=== PATIENT | male | born 1945 | race Caucasian/White ===

== ENCOUNTER 2018-02-05 16:43 | Inpatient (IN) | payer MEDICARE, OTHER ==
[~2018-02-05] VITALS: Ht 177.8 cm; Wt 144.7 kg
--- NOTE | ~2018-02-05 | EEG ---
[address] [address] EEG STUDY REPORT Name: KALA SONI JR Room: [address] IN [facility]#: [id number] Admission: 02/05/18 Attend Phys: Celina Cedeño MD Discharge: Date of : 45 Report #: [id number] THIS REPORT FOR: //name// CC: Sanjeev Cristoballakia Celina Cedeño DATE OF SERVICE: 02/10/2018 This patient is being evaluated for altered mental status. EEG was done by placing the electrodes by standard 10-20 system of electrode placement. Both referential and sequential montages were used for recording. Background activity in this patient's EEG appeared to be about 6 Hz and 30 microvolt. Photic stimulation is unremarkable. No active epileptiform activity was noticed. IMPRESSION: This is an abnormal EEG because it is disorganized and poorly formed. That is a nonspecific abnormality, which can occur with encephalopathy, effect of psychotropic medication, etc., it can also occur with advanced dementia and multiple other etiology. Clinical correlation is recommended. By: [id number] Jay MD /nt
[2018-02-05 16:43] VITALS: BP 165/93
[~2018-02-05 16:43] MED LIST: BACTRIM DS TAB1 EACH PO; CARAFATE 1 GM TA1 G1; COREG CR20 MG; ESKALITH300 MG; PROTONIX 20 MG20 M1; SIMVASTATIN40 MG; ZOLOFT100 MG
[2018-02-05] MEDS ORDERED: COREG25 MG PO ×2 (16:58→17:00)
[2018-02-05] MEDS ORDERED: ATORVASTATIN CA40 MG PO ×2 (16:59→17:01)
[2018-02-05] MEDS ORDERED: LAMICTAL100 MG PO (17:01)
[2018-02-05] MEDS ORDERED: LASIX 40 MG TAB40 M2 PO (17:13)
[2018-02-05] MEDS ORDERED: LITHIUM CARBON300 M6 PO (17:13)
[2018-02-05] MEDS ORDERED: SERTRALINE HCL50 MG PO (17:13)
[2018-02-05] MEDS ORDERED: POTASSIUM20 PO (17:14)
[2018-02-05] MEDS ORDERED: METOLAZONE 2.52.5 MG PO (17:14)
[2018-02-05] MEDS ORDERED: TUMS PO (17:15)
[2018-02-05 17:16] LABS: ABSOLUTE BASOPHILS 0.1 thou/uL (0.0-0.2); ABSOLUTE EOSINOPHILS 0.1 thou/uL (0.0-0.7); ABSOLUTE MONOCYTES 1.2 thou/uL (0.0-1.2); ABSOLUTE NEUTROPHILS 11.6 thou/uL (1.6-8.1); BASOPHILS 0.8 %; EOSINOPHILS 0.7 %; HEMATOCRIT 51.4 % (42.0-52.0); HEMOGLOBIN 17.6 gm/dL (14.0-18.0); LYMPHOCYTES 13.5 %; MCH 31.5 pg (26.0-34.0); MCHC 34.2 g/dL (28.0-37.0); MCV 92.1 fL (80.0-100.0); MONOCYTES 8.2 %; MPV 9.7 fl. (7.2-11.1); NUCLEATED RBCS 0 /100WBC; PLATELET COUNT* 265 thou/uL (150-400); POLYS 76.8 %; RBC 5.58 mil/uL (4.50-6.00); RDW-CV 13.7 % (10.5-14.5); WBC 15.1 thou/uL (4.0-11.0)
[2018-02-05] MEDS ORDERED: CIPROFLOXIN HC2.5 M1 OPHTHALMIC (17:16)
[2018-02-05] MEDS ORDERED: XARELTO20 MG PO (17:16)
[2018-02-05 17:24] LABS: ANION GAP 6 mmol/L (7-16); BUN 50 mg/dL (7-18); CHLORIDE 105 mmol/L (98-107); CO2 33 mmol/L (21-32); CREATININE 2.2 mg/dL (0.6-1.3); GLUCOSE 106 mg/dL (70-99); POTASSIUM 3.2 mmol/L (3.5-5.1); SODIUM 144 mmol/L (136-145)
[2018-02-05 17:25] LABS: INR 1.3; PROTIME 13.5 Seconds (9.20-11.50)
[2018-02-05 17:44] LABS: ALBUMIN 3.8 g/dL (3.4-5.0); ALKALINE PHOSPHATASE 136 U/L (46-116); CK-MB MASS 0.8 ng/mL (<0.5-3.6); NT-PRO BRAIN NAT PEPTIDE 1124 pg/mL (<300); SGOT 21 U/L (15-37); SGPT 20 U/L (30-65); TOTAL BILIRUBIN 2.1 mg/dL (<0.1-1.0); TOTAL PROTEIN 8.3 g/dL (6.4-8.2); TROPONIN-I LEVEL <0.06 ng/mL (<0.06)
[2018-02-05 18:29] LABS: URINE BLOOD 3+ (Negative); URINE CLARITY CLEAR; URINE COLOR YELLOW; URINE GLUCOSE-RANDOM NEGATIVE (Negative); URINE KETONES TRACE (Negative); URINE LEUKOCYTES-REFLEX TRACE (Negative); URINE NITRITE-REFLEX NEGATIVE (Negative); URINE PROTEIN TRACE (Negative); URINE SPECIFIC GRAVITY 1.015 (1.005-1.030)
[2018-02-05 18:31] LABS: ICTOTEST (BILI CONFIRMATORY) Negative (Negative); URINE BILIRUBIN 1+ (Negative)
[2018-02-05 18:37] LABS: BACTERIA-REFLEX None Seen /HPF (None Seen); CASTS None Seen /LPF (None Seen); CRYSTALS None Seen /LPF (None Seen); SQUAMOUS 0-3 Few /LPF (0-3); URINE RBC >20 Many /HPF (0-2); URINE WBC-REFLEX 0-5 Rare /HPF (0-5)
--- NOTE | 2018-02-05 19:16 | NUR ---
EVA CALLED AND NOTIFIED THAT PATIENT WILL BE ADMITTED
[2018-02-05 19:40] VITALS: BP 124/75
[2018-02-05 19:45] VITALS: BP 150/97
[2018-02-05] MEDS ORDERED: VENLAFAXINE HCL75 MG PO (20:14)
[2018-02-06] VITALS: BP 137/82
[2018-02-06 04:00] VITALS: BP 120/78
--- NOTE | 2018-02-06 04:37 | NUR ---
ASSUMED PT CARE IN 1945, PT BROUGHT UP BY ED. PT IS NON VERBAL, HE WILL MAKE EYE CONTACT WHEN HE IS SPOKEN TO. DOES NOT FOLLOW COMMANDS. PT IS NPO. ON 2L NC SATTING MID TO HIGH 90'S. PT IS TRACING VPACED ON THE MONITOR. IVF INFUSING PER MAR. PT SCREENED SEPSIS + ON THE FLOOR, NOTIFIED NO NEW ORDERS. WEISS TO DD, REPOSITIONED EVERY 2 HOURS. ADMISSION ASSESSMENT COMPLETED DOCUMENTED. BED IN LOW POSIITON, CALL LIGHT IN REACH, HOURLY ROUNIDNG COMPLETED FOR PT SAFETY.
[2018-02-06 05:32] LABS: ALBUMIN 3.2 g/dL (3.4-5.0); CALCIUM 11.7 mg/dL (8.5-10.1); CREATININE 1.7 mg/dL (0.6-1.3); TOTAL BILIRUBIN 1.7 mg/dL (<0.1-1.0)
[2018-02-06 08:05] VITALS: BP 150/92
[2018-02-06 09:42] LABS: HEMATOCRIT 48.8 % (42.0-52.0); HEMOGLOBIN 16.4 gm/dL (14.0-18.0); MCH 31.4 pg (26.0-34.0); MCHC 33.6 g/dL (28.0-37.0); MCV 93.3 fL (80.0-100.0); RBC 5.24 mil/uL (4.50-6.00); WBC 13.2 thou/uL (4.0-11.0)
[2018-02-06 09:58] LABS: DIRECT BILIRUBIN 0.4 mg/dL (<0.1-0.3); TOTAL BILIRUBIN 1.8 mg/dL (<0.1-1.0)
[2018-02-06 11:56] VITALS: BP 158/86
[2018-02-06 14:50] LABS: CREATININE 1.6 mg/dL (0.6-1.3)
[2018-02-06 14:53] LABS: CALCIUM 12.2 mg/dL (8.5-10.1)
--- NOTE | 2018-02-06 15:08 | NUR ---
CM spoke with Pt's sister, Kelly via phone, Pt is sound asleep. Per sister, Pt is estranged from most of his family. Sister states that she spoke with him on the phone several months ago, but had not seen him since the beginning of the year. Pt admitted to the hospital from [facility], where he has been skilled since 01/31. Pt admitted to [facility] skilled from [facility]. Per sister, Pt normally resides at home and his youngest son has been staying with him. Sister states that at the beginning of the year, Pt was independent with ADLs and continued to drive. Sister states that Pt is , Pt has a long hx of bipolar, and Pt's oldest son last year. Since his divorce and loss of son, Pt has been more depressed than normal. Per sister, Pt does not have a DPOA, sister stated that she would be willing to be his DPOA, if Pt wants to appoint her. Pt's youngest son, Shankar Dillard [phone], has a drug hx, so sister is unsure of how "helpful" son is to Pt. Sister to come up and see Pt this evening. Plan is for Pt to return to [facility] at in. Spoke with [facility], they are able to accept Pt back over the weekend, Pt already has a qualifying stay, so does not need to be here 3 midnights. Following.
[2018-02-06 15:49] VITALS: BP 155/93
--- NOTE | 2018-02-06 16:32 | EKG ---
[place] [address] ELECTROCARDIOGRAM REPORT Name: KALA SONI JR Room: [address] ADM IN M.R.#: [id number] Admission: 02/05/18 Attend Phys: Celina Cedeño MD Discharge: Date of : 45 Report #: [id number] THIS REPORT FOR: //name// [facility] ED Test Date: 2018-02-05 Test Time: 16:49:59 Pat Name: KALA SOPINEDA Department: Room: [facility] Gender: M Artificial Stone Setter: Kyler REYES : 1945 Requested By: Marco Ochoa Order Number: [id number] MD: Sameer Pickett Measurements Intervals Balko Rate: 80 P: WA: QRS: 225 QRSD: 140 T: 71 QT: 536 QTc: 619 Interpretive Statements Afib/flutter and ventricular-paced rhythm No further analysis attempted due to paced rhythm Baseline wander in lead(s) V2 Compared to ECG 02/19/2011 04:30:06 ST (T wave) deviation no longer present Electronically Signed On 02-06-2018 16:32:17 WOOD FLOORING SPECIALIST by Sameer Pickett [email or web address] <ELECTRONICALLY SIGNED> By: Sameer Pickett MD, FACC 02/06/18 1632 1649 [id number] Sameer Pickett MD, FACC /EPI
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
[2018-02-06 20:00] VITALS: BP 169/104
[2018-02-07] VITALS: BP 120/79
[2018-02-07 04:00] VITALS: BP 128/75
[2018-02-07 04:54] LABS: CREATININE 1.5 mg/dL (0.6-1.3); MAGNESIUM 1.7 mg/dL (1.8-2.4); POTASSIUM 3.5 mmol/L (3.5-5.1)
[2018-02-07 05:32] LABS: CALCIUM 12.6 mg/dL (8.5-10.1)
--- NOTE | 2018-02-07 06:02 | NUR ---
pt rested quietly in bed this shift without agitation, pt awake and alert at times but non verbal, pt does not make eye contact, pt incontinent of stool x1, manuel cath remains intact to dependent drainage, iv fluids infusing, critical calcium called to dr melgoza this am at 0546, received new orders, pt resting quietly in bed at this time, fall and seizure precautions in place
[2018-02-07 06:28] LABS: CREATININE 1.5 mg/dL (0.6-1.3); POTASSIUM 3.5 mmol/L (3.5-5.1)
[2018-02-07 06:33] LABS: CALCIUM 12.7 mg/dL (8.5-10.1)
--- NOTE | 2018-02-07 07:56 | NUR ---
PT RESTING IN BED, NON VERBAL, OPENS EYES TFO VERBAL COMMANDS, NO OBVIOUS PAIN OR DISCOMFORT, BREATHING EVEN AND UNLABORED, O2 AT2L PER NC, TURNS Q 2 HOURS
[2018-02-07 08:00] VITALS: BP 152/98
[2018-02-07 11:45] VITALS: BP 148/89
[2018-02-07 13:40] LABS: CREATININE 1.5 mg/dL (0.6-1.3); PHOSPHORUS* 2.2 mg/dL (2.5-4.9)
[2018-02-07 13:53] LABS: CALCIUM 12.7 mg/dL (8.5-10.1)
[2018-02-07 16:00] VITALS: BP 148/88
--- NOTE | 2018-02-07 17:40 | NUR ---
PT RESTING IN BED, EYES CLOSED MOST OF DAY, SOMEWHAT LETHARGIC,OPENS EYES TO VERBAL COMMANDS BRIEFLY, MAKES EYE CONTACT, NO-VERBAL, KEPT NPO FOR PT SAFETY, TURNED Q 2 HOURS, V-PACED ON MONITOR , IVF, WEISS TO DD, NO OBVIOUS PAIN OR DISCOMFORT, BREATHING EVEN AND UNLABORED , O2 AT 2L PER NC
[2018-02-07 20:00] VITALS: BP 142/80
[2018-02-08] VITALS: BP 152/96
[2018-02-08 04:30] VITALS: BP 137/77
[2018-02-08 05:02] LABS: HEMATOCRIT 48.3 % (42.0-52.0); HEMOGLOBIN 16.4 gm/dL (14.0-18.0); MCH 31.6 pg (26.0-34.0); MCV 92.7 fL (80.0-100.0); MPV 10.2 fl. (7.2-11.1); RBC 5.2 mil/uL (4.50-6.00); RDW-CV 13.9 % (10.5-14.5); WBC 12.7 thou/uL (4.0-11.0)
--- NOTE | 2018-02-08 05:07 | NUR ---
pt has no change in condtion this shift, continues tracing vpaced on cardiac monitoring, repositioned every two hours, continues unable to take po meds due to mental status, resting in bed quietly at this time fall precautions in place
[2018-02-08 05:13] LABS: ALBUMIN 3.1 g/dL (3.4-5.0); CREATININE 1.5 mg/dL (0.6-1.3); MAGNESIUM 1.9 mg/dL (1.8-2.4); POTASSIUM 3.2 mmol/L (3.5-5.1); TOTAL BILIRUBIN 1.3 mg/dL (<0.1-1.0); TOTAL PROTEIN 6.6 g/dL (6.4-8.2)
[2018-02-08 05:17] LABS: CALCIUM 12.5 mg/dL (8.5-10.1)
[2018-02-08 08:00] VITALS: BP 134/78
[2018-02-08 12:40] VITALS: BP 144/99
--- NOTE | 2018-02-08 15:10 | NUR ---
RE: calcitonin order. Msg to Dr Lew calcitonin not a [facility]-approved item. Requested alternative order. Spoke to Zay GARCIA who also paged Dr. Lew. Stated he acknowledged calcitonin not available & stated pt receiveced bisphosphonate yesterday.
--- NOTE | 2018-02-08 15:34 | NUR ---
ASSUMED PT CARE AT 0730 REPORT RECEIVED FROM NURSE. PT IS AWAKE, OPEN EYES WHEN NAME IS CALLED, MOURNING WHEN ASKED HOW HE IS DOING. NO SPEECH. DOES NOT APPEAR TO BE IN PAIN AT THAT TIME. VSS. PT IS TOO TIRED TO MOVE EXTREMITIES. CALCIOUM LEVEL IS CRITICALLY HIGH 12.5, RESULT COMMUNICATED TO DR REY WHO ORDERED COLCICHINE. PHARMACY CALLED IN AND SAID THAT HOSPITAL DOES NOT CARRY THI MEDICINE. DR REY MADE AWARE. RESPONDED THERE IS NO OTHER SUBSTITE. PT IS TOO TIRED TO TAKE PO MEDICINE. TALKED TO FAMILIY MEMBERS OVER THE PHONE WHO CALLED, AND LET THEM KNOW ABOUT PT STATUS. PT IS TOO TIRED TO EAT. IV FLUID INFUSING AT 150CC PER HOUR. POTASSIUM REPLACED. IV MEDICINE ADMINISTERED ORDERED. Q2TURN PERFORMED.WEISS IN PLACE. WILL CONTINUE TO MONITOR.
[2018-02-08 16:53] VITALS: BP 165/99
[2018-02-08 17:50] LABS: pH 7.428 (7.340-7.450)
[2018-02-08 17:54] LABS: BE 7.3 mmol/L (-2 to +3); HCO3 33.6 mmol/L (22.0-26.0); PO2 89.9 mmHg (75.0-100.0)
[2018-02-08 19:50] VITALS: BP 125/83
[2018-02-09] VITALS: BP 139/83
--- NOTE | 2018-02-09 03:19 | NUR ---
RECIEVED REPORT AND ASSUMED CARE AT 1900. VITAL SIGNS STABLE. FORESTRY ENGINEER IN PLACE. PT UP WITH ROBBY LIFT ASSIST X 2. PT DOESN'T APPEAR TO BE IN PAIN AT THIS TIME, AND IS UNABLE TO VOICE NEEDS. ASSESSMENT COMPLETED. BED LOCKED, ALARM ON AND CALL LIGHT WITHIN REACH. HOURLY ROUNDING DONE AND ALL NEEDS MET. NURSING WILL CONTINUE TO MONITOR.
[2018-02-09 04:00] VITALS: BP 132/75
[2018-02-09 05:07] LABS: CALCIUM 11.1 mg/dL (8.5-10.1); CREATININE 1.4 mg/dL (0.6-1.3); MAGNESIUM 1.7 mg/dL (1.8-2.4); POTASSIUM 3.2 mmol/L (3.5-5.1)
--- NOTE | 2018-02-09 07:20 | NUR ---
CHANGE OF SHIFT BEDSIDE REPORT GIVEN PATIENT IN BED AND SLEEPING ASSUMED PATIENT CARE
[2018-02-09 08:00] VITALS: BP 140/76
--- NOTE | 2018-02-09 09:09 | NUR ---
No dc today. Plan continues to be for Pt to return to [facility] once medically stable for dc. Following.
[2018-02-09 11:10] LABS: KAPPA FREE LIGHT CHAINS 27.2 mg/L (3.3-19.4)
[2018-02-09 12:00] VITALS: BP 134/85
[2018-02-09 16:45] VITALS: BP 138/82
[2018-02-09 20:00] VITALS: BP 136/85
[2018-02-10] VITALS: BP 134/84
--- NOTE | 2018-02-10 02:09 | NUR ---
RECIEVED REPORT AND ASSUMED CARE AT 1900. BAG REPAIRER IN PLACE. VITAL SIGNS STABLE. PT UP WITH ROBBY LIFT ASSIST X 2. PT DOESN'T APPEAR TO HAVE PAIN AND IS UNABLE TO VOICE OWN NEEDS. ASSESSMENT COMPLETED. BED LOCKED, ALARM ON AND CALL LIGHT WITHIN REACH. HOURLY ROUNDING DONE AND ALL NEEDS MET. FALL PRECAUTIONS IN PLACE. NURSING WILL CONTINUE TO MONITOR.
[2018-02-10 04:00] VITALS: BP 139/85
[2018-02-10 04:55] LABS: HEMATOCRIT 46.2 % (42.0-52.0); HEMOGLOBIN 15.8 gm/dL (14.0-18.0); MCH 32.1 pg (26.0-34.0); MCHC 34.3 g/dL (28.0-37.0); MCV 93.7 fL (80.0-100.0); MPV 11.6 fl. (7.2-11.1); RBC 4.93 mil/uL (4.50-6.00); RDW-CV 13.7 % (10.5-14.5); WBC 17.1 thou/uL (4.0-11.0)
[2018-02-10 05:30] LABS: CALCIUM 10.3 mg/dL (8.5-10.1); CREATININE 1.2 mg/dL (0.6-1.3); MAGNESIUM 1.8 mg/dL (1.8-2.4); POTASSIUM 3.7 mmol/L (3.5-5.1)
--- NOTE | 2018-02-10 07:20 | NUR ---
CHANGE OF SHIFT BEDSIDE REPORT GIVEN PATIENT SEEN AT BEDSIDE IN BED ASLEEP ASSUMED PATIENT CARE
[2018-02-10 08:00] VITALS: BP 132/68
--- NOTE | 2018-02-10 10:10 | NUR ---
CM left message for Estrella with [facility] regarding skilled placement for Pt, awaiting call back
[2018-02-10 12:00] VITALS: BP 123/58
--- NOTE | 2018-02-10 13:11 | NUR ---
Nutrition: Pt admitted with elevated lithium level. Dehydration, confusion, UTI. Wt: 315#. Regular diet. Albumin 3.1. B12, statin, carvedilol. H/o bipolar, MDD, CKDIII, afib. Pt was assessed for high BMI. Pt awaiting placement. No nutrition interventions needed today. Low risk.
--- NOTE | 2018-02-10 14:49 | CON ---
[facility] [address] [place] [address] CONSULTATION Name: KALA SONI JR Room: [address] IN ..#: [id number] Admission: 02/05/18 Attend Phys: Celina Cedeño MD Discharge: Date of : 45 Report #: [id number] THIS REPORT FOR: //name// CC: Sanjeev Cedeño DATE OF SERVICE: 02/10/2018 HISTORY OF PRESENT ILLNESS: This is a 72-year-old male patient who was evaluated by me for any neurological etiology for altered mental status. I reviewed the patient's record. The patient does not provide any history. It looks like the patient was admitted on 02/05/2018 with altered mental status. It is not clear what his baseline is because even the [facility] did not know what the baseline is because he is a new resident. Records indicate that there were multiple abnormalities when he was admitted. It looks like he was hypernatremic, but the maximum sodium was 150. He has hypercalcemia and his ionized calcium is 7.7 the last time it was checked. His B12 and TSH have been unremarkable. When he came in, he was lithium toxic with lithium level of 1.9. It has come down to 1.2 the last time it was checked, which is upper limit of the normal. REVIEW OF SYSTEMS: Indicate that this patient does have a pacemaker as per records. It is not clear if the pacemaker is MRI compatible or not. He has history of bipolar disorder. I do not have the further history, but it looks like he is on multiple medications for that. I carried out the 14-point review of system, but is from the record because the patient will not provide any history. He has a history of hypercalcemia because of hyperparathyroidism. He has altered mental status, baseline is unclear. It is not possible to tell if he is having any other symptoms like visual problems, but apparently, he has a history of muscle weakness, dizziness, hypertension, depression. One of the record also indicates atrial fibrillation. He is on Xarelto for that. This was his relevant 14-point review of systems. PAST MEDICAL HISTORY: Unavailable, but from all indication, it looks like he has probably been diagnosed with bipolar disorder. FAMILY HISTORY: Also unavailable. SOCIAL HISTORY: From the record, it looks like he lives in a fci. PHYSICAL EXAMINATION: Very limited. He is very sleepy. He wakes up. When he wakes up, he does not follow any command. He did not say anything and because of that, it is not possible to check his memory or fund of knowledge. Cranial nerve examination 2-12 was attempted. He did not move his eyes in any direction from me. When I asked him to move his extremity, he does not move much at all, but I think when he wants to, he [place] [address] CONSULTATION Name: KALA SONI JR Room: [address]#: [id number] Admission: 02/05/18 Attend Phys: Celina Cedeño MD Discharge: Date of : 45 Report #: [id number] extremities. He will not do much with the lower extremities, but at one time, he did move slightly. He will not do position sense and I cannot tell about pinprick. His tone looks symmetrical. He did not do cerebellar sign and will not cooperate with the fundus examination. I could not elicit reflexes in the lower extremities. His pulses are difficult to feel. He may have slight edema. Cardiac examination does indicate some irregularity, but he has a history of atrial fibrillation. He does not appear to be markedly in respiratory distress. His blood pressure is 132/68, respirations 18, pulse is 80, temperature 99. LABORATORY DATA: His white count is 17.1. His urine analysis indicates 0-5 wbc. He did have a CT scan of the head done on admission, which demonstrate atrophic changes. IMPRESSION: This patient has finding of encephalopathy. He has multiple problems, which can cause encephalopathy. That include hypernatremia, hypercalcemia, lithium toxicity, etc. 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 Although commonly known is that correction of hyponatremia can cause central pontine myelinolysis, but it is increasingly recognized a correction of hypernatremia can also cause central pontine myelinolysis that is a possibility, but his sodium was not high enough for him to cause that. RECOMMENDATIONS: 1. We will do an EEG. 2. We can try to find out if his pacemaker is MRI compatible or not. That is going to be difficult to find out because no family member is there, but if we can find out, an MRI can be done that can help. 3. It will be desirable to find out what the patient's baseline condition is. I do not know what his baseline mental status is and it is difficult to find out. 4. We will discuss the patient with you, but it might be desirable just to repeat the CT on him and see if we can find some changes until we can find out if his pacemaker is compatible with MRI or not. Thank you very much for this referral. <ELECTRONICALLY SIGNED> By: Josue Jay MD 02/10/18 1449 1212 [id number] esau Nair
[2018-02-10 15:30] VITALS: BP 124/82
[2018-02-10 17:49] LABS: URINE BILIRUBIN NEGATIVE (Negative); URINE BLOOD NEGATIVE (Negative); URINE CLARITY CLEAR; URINE COLOR YELLOW; URINE GLUCOSE-RANDOM NEGATIVE (Negative); URINE KETONES NEGATIVE (Negative); URINE LEUKOCYTES-REFLEX NEGATIVE (Negative); URINE NITRITE-REFLEX NEGATIVE (Negative); URINE PROTEIN NEGATIVE (Negative); URINE UROBILINOGEN 0.2 E.U./dl (0.2-1.0)
[2018-02-10 20:00] VITALS: BP 125/67
[2018-02-11] VITALS: BP 137/77
--- NOTE | 2018-02-11 02:57 | NUR ---
PT ALERT, NONVERBLE, NOT FOLLOWING COMMANDS. TURN Q 2 HRS. INCONT OF STOOL. WEISS W/ YELLOW. PT IN ISOLATION PENDING RESULTS FOR STOOL SENT FOR CDIFF. TELEMETRY SHOWS VPACED. WILL CONTINUE TO MONITOR.
[2018-02-11 04:00] VITALS: BP 133/74
[2018-02-11 05:14] LABS: HEMOGLOBIN 15.4 gm/dL (14.0-18.0); MCH 32.6 pg (26.0-34.0); MCHC 35.1 g/dL (28.0-37.0); MPV 11.3 fl. (7.2-11.1); RBC 4.73 mil/uL (4.50-6.00); RDW-CV 13.8 % (10.5-14.5); WBC 8.9 thou/uL (4.0-11.0)
[2018-02-11 05:44] LABS: ALBUMIN 2.6 g/dL (3.4-5.0); CALCIUM 9.5 mg/dL (8.5-10.1); CREATININE 1.2 mg/dL (0.6-1.3); MAGNESIUM 2.2 mg/dL (1.8-2.4); PHOSPHORUS* 2.1 mg/dL (2.5-4.9); POTASSIUM 3.1 mmol/L (3.5-5.1); TOTAL BILIRUBIN 0.9 mg/dL (<0.1-1.0); TOTAL PROTEIN 6.5 g/dL (6.4-8.2)
--- NOTE | 2018-02-11 07:20 | NUR ---
CHANGE OF SHIFT, BEDSIDE REPORT GIVEN PATIENT SEEN AT BEDSIDE IN BED ASLEEP ASSUMED PATIENT CARE
[2018-02-11 11:30] VITALS: BP 116/76
--- NOTE | 2018-02-11 12:33 | NUR ---
CM spoke with Pt's sister, sister discussed applying for guardianship v. DPOA. CM explained that until Pt is more A&O, DPOA paperwork can not be completed. Sister to speak with a security investigator regarding guardianship. CM updated sister on having to locate alternate placement at dc, sister voiced understanding. Continue to await call back from Esther with [facility].
--- NOTE | 2018-02-11 15:31 | NUR ---
Pt more A&O this afternoon, nurse and CM were able to ask orientation questions, Pt was able to answer. Sister in room. Pt in agreement with having his sister be his DPOA. Form completed, copy on chart
--- NOTE | 2018-02-11 16:55 | NUR ---
discharge to rehab report given to [facility] left in place heart monitor removed personal belongings sent discharge information given, acknolwedged, and signed copies done asssited up via good condition
[2018-02-11 20:00] VITALS: BP 115/61
[2018-02-12] VITALS: BP 133/86
--- NOTE | 2018-02-12 02:45 | NUR ---
ASSUMED PT CARE @ 193. K+ RETURNED TO NORMAL LIMITS. PT MINIMALLY VERBAL. PT RESPONDED "YES" AFTER THIS NURSE WASHED THE CRUST FROM EYELASHES AND ASKED HIM IF HE FELT BETTER. MAKES EYE CONTACT AT TIMES. ATTEMPTS TO ASSIST WITH TURNS. 2 LIQUID STOOLS THIS SHIFT. BARRIER CREAM APPLIED FOR PREVENTATIVE (NO CURRENT BREAKDOWN). PT HAS VOIDED X 2 (INCONTINENT) SINCE WEISS D/C'D @ SHIFT CHANGE. A PACED ON MONITOR. CALL LIGHT IN REACH. HOURLY ROUNDING FOR SAFETY.
[2018-02-12 04:00] VITALS: BP 143/73
[2018-02-12 05:23] LABS: CALCIUM 9.2 mg/dL (8.5-10.1); MAGNESIUM 1.9 mg/dL (1.8-2.4); PHOSPHORUS* 2.1 mg/dL (2.5-4.9)
[2018-02-12 05:26] LABS: POTASSIUM 3.4 mmol/L (3.5-5.1)
[2018-02-12 09:00] VITALS: BP 120/74
[2018-02-12 11:12] LABS: LAMBDA FREE LIGHT CHAINS 16.1 mg/L (5.7-26.3)
[2018-02-12 11:53] VITALS: BP 143/85
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
--- NOTE | 2018-02-12 18:34 | NUR ---
ASSUMED PT CARE AT 0730, FULL ASSESMENT DONE CHARTED. PT DROWSY, WAKES TO STIMULATION, WILL ANSWER SOME YES/NO QUESTIONS, ONE WORD ANSWERS GIVEN AT TIMES. THIS EVENING PT STATES "WHATS GOING ON" WHEN RN WENT IN ROOM. PT HAVING TROUBLE SWALLOWING. ATTEMPTED FOR PT TO DRINK JUICE, NO ATTEMPT TO SWALLOW, JUICE RAN OUT OF PTS MOUTH. ATTEMPTED PUDDING, PT TOOK IT IN MOUTH BUT DID NOT SWALLOW. PT APPEARED TO ASPERATE ON MASHED POTATOES. ATTEMPTED ORAL VANC IN NECTAR THICK JUICE, PT APPEARED TO ASPERATE AT THIS TIME. PT MADE NPO, SPEECH CONSULT PLACED, DR INFORMED. PT DENIES PAIN, VSS, VPACED ON THE MONITOR THIS AM, CHANGED TO M/S STATUS THIS AFTERNOON. ATTEMPTED TO PLACE SECOND IV, NO NEW ONE ABLE TO BE PLACED. RAC IV FLUSHED WELL, PT BENDS ARM FREQUENTLY. EDUCATED TO KEEP ARM STRAIT. FALL PRECAUITONS IN PLACE. PT TURNED Q2 HR. WILL CONTINUE WITH PLAN OF CARE
[2018-02-12 20:00] VITALS: BP 121/60
[2018-02-13] VITALS: BP 125/71
--- NOTE | 2018-02-13 02:50 | NUR ---
PATIENT RESTED IN BED. PATIENT DOES NOT APPEAR TO BE IN DISTRESS. FALL PRECAUTIONS IN PLACE, CALL LIGHT WITH IN REACH, HOURLY ROUNDING OBSERVED, BED ALARM ON. PATIENT HAD MUTIPLE LIQUID BOWEL MOVEMENTS. PATIENT DID NOT APPEAR TO TOLERATE PO MED WELL, DOCTOR TIMOTHY NOTIFIED, NO NEW ORDERS.
[2018-02-13 04:48] LABS: HEMATOCRIT 42.7 % (42.0-52.0); HEMOGLOBIN 14.7 gm/dL (14.0-18.0); MCHC 34.5 g/dL (28.0-37.0); MCV 92.7 fL (80.0-100.0); MPV 10.2 fl. (7.2-11.1); RBC 4.61 mil/uL (4.50-6.00); RDW-CV 13.6 % (10.5-14.5); WBC 7.7 thou/uL (4.0-11.0)
[2018-02-13 05:01] LABS: ALBUMIN 2.4 g/dL (3.4-5.0); CALCIUM 8.3 mg/dL (8.5-10.1); CREATININE 0.7 mg/dL (0.6-1.3); MAGNESIUM 1.7 mg/dL (1.8-2.4); POTASSIUM 4.3 mmol/L (3.5-5.1); TOTAL BILIRUBIN 0.7 mg/dL (<0.1-1.0); TOTAL PROTEIN 5.7 g/dL (6.4-8.2)
--- NOTE | 2018-02-13 09:49 | NUR ---
SPEECH TO CONDUCT SWALLOW EVALUATION. IF PT DOES NOT PASS WILL START DOBHOFF TUBE AND START TUBE FEEDING.
--- NOTE | 2018-02-13 11:38 | NUR ---
JUNIOR FINANCIAL ANALYST SPOKE TO JACQUELIN, JUAN C WITH [facility] TO INFORM THAT PATIENT IS NOT READY TO D/C TODAY, AND THAT ACCORDING TO THE PHYSICIAN PATIENT MAY NOT BE READY TO D/C OVER THE WEEKEND. JACQUELIN INFORMS THAT THE FACILITY IS 'STILL WILLING TO ACCEPT THE PATIENT IF A BED IS AVAILABLE AT D/C', AND WOULD LIKE TO BE 'UPDATED ON THE PATIENT'S STATUS' SO THEY ARE 'PREPARED FOR HIS POSSIBLE ADMISSION'. JACQUELIN ALSO INFORMS THAT THE FACILITY IS UNABLE TO PROVIDE TRANSPORTATION, SO CM WILL NEED TO ARRANGE TRANPORT AT D/C. CM WILL REMAIN AVIALABLE TO ASSIST AND FOLLOW NEEDED. JACQUELIN (ADMISSIONS) [facility] PHONE: ([phone]) FAX: ([phone])
[2018-02-13 13:19] VITALS: BP 108/72
--- NOTE | 2018-02-13 17:04 | NUR ---
REPORT CALLED TO 3RD FLOOR.
--- NOTE | 2018-02-13 17:39 | NUR ---
PATIENT ARRIVED ON UNIT FROM TELE AT 1745. COMPLETED ASSESSMENT. IV FLUSHING. COMPLETED HOURLY ROUNDING. CALL LIGHT WITHIN REACH. WILL CONTINUE TO MONITOR.
[2018-02-13 18:10] LABS: URINE PROTEIN (MG/DL) 10.2 mg/dL (Not Estab.)
[2018-02-13 20:00] VITALS: BP 92/55
--- NOTE | 2018-02-14 05:51 | NUR ---
ASDSUMED [facility] CARE AT 1930. PATIENT ALERT AND ORIENTED TIMES FOUR. IV PATENT. TURNED Q2 HOURS. REMAINS INCONTINENT OF STOOL AT THIS TIME. NO COMPLAINTS OF PAIN OR DISCOMFORT NOTED. ISOLATION PRECAUTIONS MAINTAINED. CHEMIST ENZYMES AND HOURLY ROUNDING COMPLETED DOCUMENTED.
[2018-02-14 07:40] VITALS: BP 120/77
[2018-02-14 16:00] VITALS: BP 143/91
--- NOTE | 2018-02-14 16:25 | NUR ---
ASSESSMENT COMPLETE. PT ALERT AND ORIENTED X4. PT SLEPT MOST OF THE DAY, REFUSING MEALS. PT GIVEN PO VANC FOR CDIFF. PT DENIES NEED FOR PAIN MEDICATION AND DENIES N/V. PT IS ON 3L PER NC, SOA WITH EXERTION. PT INCONT DURING THE DAY. IV FLUIDS INFUSING. PT IS UP TO CHAIR WITH 1-2 ASSIST WITH GAIT AND WALKER. PT SEEN BY PT TODAY. PT Q2 TURN. SEE ASSESSMENT AND VITALS FOR OTHER DETAILS. CALL LIGHT WITHIN REACH, WILL CONTINUE PLAN OF CARE
[2018-02-14 19:45] VITALS: BP 140/83
[2018-02-14 23:55] VITALS: BP 160/45
--- NOTE | 2018-02-15 04:59 | NUR ---
PT SLEPT MOST OF SHIFT. ASSESSMENT DOCUMENTED. MEDS GIVEN PER E-MAR. IV PATENT, FLUIDS INFUSING. NO REPORTS OF PAIN OR NAUSEA. PT REFUSED ORAL MEDICATIONS AT BEGINING OF SHIFT. ISOLATION MAINTAINED. PT REPOSITIONED THROUGH NIGHT. WILL CONTINUE WITH PLAN OF CARE.
[2018-02-15 07:20] VITALS: BP 150/96
--- NOTE | 2018-02-15 16:24 | NUR ---
ASSESSMENT COMPLETE. PT ALERT AND ORIENTED X4. FLAT AND DEPRESSED MOOD THROUGHOUT THE DAY. PT ATE 50% OF BREAKFAST, TOOK AM MEDS CRUSHED IN APPLESAUCE. PT REFUSING TO EAT LUNCH AND DINNER. PT IS Q2 TURN. INCONT OF STOOL AND URINE DURING THE DAY. PT GAGGING/SPIT OUT PO VANC THIS AFTERNOON. PT HAS FLUIDS INFUSING. PT IS UP 2 ASSIST WITH WALKER AND GAIT BELT. SKIN W/D/I. MAG AND K+ REPLACED IV TODAY. SEE ASSESSMENT AND VITALS FOR OTHER DETAILS. CALL LIGHT WITHIN REACH, BED ALARM ON. WILL CONTINUE PLAN OF CARE
[2018-02-15 16:50] VITALS: BP 135/73
[2018-02-15 19:30] VITALS: BP 135/94
--- NOTE | 2018-02-16 05:13 | NUR ---
PT SLEPT MOST OF SHIFT. ASSESSMENT DOCUMENTED. MEDS GIVEN PER E-MAR. IV PATENT, FLUIDS INFUSING. PT REFUSED POTASSIUM THIS SHIFT STATING HE DIDN'T LIKE THE WAS IT TASTED. PT REPOSTIONED THROUGH NIGHT. PT INCONTINENT OF BOWEL AND BLADDER THIS SHIFT. WILL CONTINUE WITH PLAN OF CARE.
[2018-02-16 08:00] VITALS: BP 105/69
--- NOTE | 2018-02-16 16:00 | NUR ---
SHIFT NOTE - PT NO EATING MUCH THIS SHIFT - ONLY ABOUT 25% PER MEAL. PT REFUSED THERAPIES TODAY. PT REMAINS IN CDIFF PRECAUTIONS. WILL CONTINUE TO MONITOR.
[2018-02-16 21:30] VITALS: BP 128/78
--- NOTE | 2018-02-17 05:00 | NUR ---
PT SLEPT FAIRLY WELL OVERNIGHT,AWAKENS WITH CARES. INCONTINENT OVERNIGHT, DALE CARE GIVEN. ONE JELLY BM OVERNIGHT. RAC IVF, ABX GIVEN ORDERED. O2 2L. AM LABS DRAWN. REMAINS ON SP CONTACT ISOLATION FOR +CDIFF. TURNED AND REPOSITIONED Q2 HOURS AND PRN FOR SKIN CARE AND COMFORT PT WOULD ALLOW. BED ALARM ON FOR SAFETY.
[2018-02-17 07:08] VITALS: BP 99/66
[2018-02-17 15:54] VITALS: BP 103/58
--- NOTE | 2018-02-17 16:26 | NUR ---
ASSESSMENT COMPLETE. PT SLEPT THROUGH THE DAY REFUSING TO EAT. PT TURNED Q2. INCONT AT TIMES. IV FLUIDS INFUSING. K+ REPLACED. PT IS ON 2L PER NC WITH ADEQUATE SATS. DENIES SOA. PT DENIES PAIN AND N/V. SEE ASSESSMENT AND VITALS FOR OTHER DETAILS. CALL LIGHT WITHIN REACH, WILL CONTINUE PLAN OF CARE
[2018-02-18] VITALS: BP 102/65
--- NOTE | 2018-02-18 05:09 | NUR ---
PATIENT SLEPT WELL DURING THIS SHIFT. PT WITH TWO BOWEL MOVEMENTS DURING THE NIGHT. PT INCONTINENT OF BOWEL/BLADDER. PT TURNED Q2H PER PROTOCAL. PT WITH FLUIDS INFUSING PER DR ORDER. PT ON O2 @ 2 LITERS PER NASAL CANNULA. PT REMAINS IN ISLATION FOR CDIFF. FREQUENTLY USED ITEMS AND CALL LIGHT WITHIN REACH. SIDERAILS UPX4 AND BED ALARM ON. WILL CONTINUE TO MONITOR.
[2018-02-18 09:00] VITALS: BP 126/76
--- NOTE | 2018-02-18 11:03 | NUR ---
PER PROGRESS NOTE, PT.NOT BEING DISCHARGED TODAY,POSSIBLY TOMORROW. COMMUNICATED THIS TO ILIANA FREEMAN [facility] IN [place] [phone] AND FAXED UPDATED INFORMATION TO HER AT [phone].
[2018-02-18 16:36] VITALS: BP 121/78
--- NOTE | 2018-02-18 18:42 | NUR ---
0700 ASSUMED CARE OF PT, ASSESSMENT COMPLETE, B/P MEDICATION HELD AM AND PM DOSE D/T PRESSURE RUNNING LOW. PT SLEEPING MOST OF THE DAY, APPETITE POOR THIS SHIFT. IV SALINE LOCKED, FLUSHED AND PATENT,IS ABLE TO MAKE NEEDS KNOWN. NO C/O PAIN AT THIS TIME, HOURLY ROUNDING MAINTAINED, WILL CONT TO MONITOR.
[2018-02-18 20:49] VITALS: BP 124/70
--- NOTE | 2018-02-19 05:04 | NUR ---
PATIENT SLEPT WELL DURING THIS SHIFT. PT ON O2 @ 2 LITERS PER NASAL CANNULA. PT INCONTINENT OF BOWEL AND BLADDER. PT WITH NO BOWEL MOVEMENTS ON THIS SHIFT. PT DENIES PAIN/NAUSEA. PT TURNED Q2H PER PROTOCAL. PT REMAINS IN SPECIAL CONTACT ISOLATION FOR C-DIFF. FREQENTLY USED ITEMS AND CALL LIGHT WITHIN REACH. SIDERAILS UPX3 AND BED ALARM ON. WILL CONTINUE TO MONITOR.
[2018-02-19 05:33] LABS: CALCIUM 9.6 mg/dL (8.5-10.1); CREATININE 0.8 mg/dL (0.6-1.3); MAGNESIUM 1.8 mg/dL (1.8-2.4); POTASSIUM 3.3 mmol/L (3.5-5.1)
[2018-02-19 07:45] VITALS: BP 122/72
[2018-02-19] MEDS ORDERED: ATORVASTATIN CA40 MG PO (10:35)
[2018-02-19] MEDS ORDERED: MIDAMOR 5MG TABL5 M1 PO (10:46)
[2018-02-19] MEDS ORDERED: VANCOCIN 125 M125 M1 PO (11:03)
[2018-02-19 11:05] VITALS: BP 122/72
--- NOTE | 2018-02-19 11:37 | NUR ---
SPOKE TO THE PAITENT TO DISCUSS DISCHARGE PLANNING NEEDS AND HIS DISCHARGE TODAY TO [facility]. PATIENT IN AGREEMENT. CM SPOKE TO PATIENT'S SISTER RAMY (DPOA) TO INFORM OF THE PATIENT'S D/C. PATIENTT'S SON INFORMS THAT HE WILL ATTEMPT TO BRING HIS FATHER SOME EXTRA CLOTHING BY 1400 PRIOR TO THE PATIENT'S D/C. CASKET INSPECTOR SPOKE TO JACQUELIN WITH ADMISSIONS AT [facility] TO INFORM OF THE PATIENT'S D/C AND SHE INFORMS THAT SHE WILL ALSO NEED THE PATIENT'S DA124 AND DPOA FORM FAXED WELL. D/C ASSEMBLER [employer] FAXED [facility] ALL REQUESTED INFO AND D/C ORDERS. D/C ASSEMBLER [employer] ALSO PLACED A COPY OF DA124 IN CHART. D/C ASSEMBLER [employer]ATE [facility] TO INFORM OF THE NEED TO ARRANGE TRANSPORT TO [facility] AT 1400, AND FAXED THE PATIENT TRANSFER FORM. D/C ASSEMBLER W[employer] GATE INFORMED THE RN IN-CHARGE OF THE PATIENT OF THE PATIENT'S TIME OF TRANSPORT AND WHERE TO CALL REPORT. RN IN AGREEMENT. CM WILL REMAIN AVIALABLE TO ASSIST AND FOLLOW NEEDED.
--- NOTE | 2018-02-19 12:36 | NUR ---
ASSESSMENT COMPLETE. PT ALERT AND ORIENTED X4. FLAT AND DEPRESSED MOOD. PT ABLE TO SIT UP, TAKE MORNING MEDICATIONS AND ATE 25% OF BREAKFAST. PT IS ON 2L PER NC. INCONT OF STOOL AND URINE. SKIN W/D/I. PT ABLE TO WORK WITH PT AND OT TODAY. K+ REPLACED PER PROTOCOL. SEE ASSESMENT AND VITALS FOR OTHER DETAILS. CALL LIGHT WITHIN REACH, WILL CONTINUE PLAN OF CARE.
--- NOTE | 2018-02-19 13:59 | NUR ---
PT DISCHARGED AT 1400 WITH EMS TO [facility] IN [place]. IV DC'D WITHOUT DIFFICULTY. HOME CLOTHING SENT WITH PT. NO OTHER CONCERNS FROM PT AT THIS TIME.
[2018-02-19 14:01] VITALS: BP 122/72
== END 2018-02-19 14:00 | DRG 917 ==
LOC: M.ERS 16:43 → M.2W 18:06 → M.TBA-ER 18:06 → M.2W 19:54 → M.3W 02-13 17:31
PROVIDERS: Family Medicine; Internal Medicine; ADMIT Family Medicine
DX: T56.891A Toxic effect of other metals, accidental (unintentional), initial encounter (principal); G92 Toxic encephalopathy; N39.0 Urinary tract infection, site not specified; N17.9 Acute kidney failure, unspecified; E87.0 Hyperosmolality and hypernatremia; I50.32 Chronic diastolic (congestive) heart failure; N25.1 Nephrogenic diabetes insipidus; I13.0 Hypertensive heart and chronic kidney disease with heart failure and stage 1 through stage 4 chronic kidney disease, or unspecified chronic kidney disease; E83.52 Hypercalcemia; F31.9 Bipolar disorder, unspecified; E86.0 Dehydration; E87.6 Hypokalemia; E80.6 Other disorders of bilirubin metabolism; N18.3 Chronic kidney disease, stage 3 (moderate); I48.2 Chronic atrial fibrillation; K80.20 Calculus of gallbladder without cholecystitis without obstruction; E04.1 Nontoxic single thyroid nodule; Z79.899 Other long term (current) drug therapy; Z95.0 Presence of cardiac pacemaker; Y92.89 Other specified places as the place of occurrence of the external cause